=== PATIENT | female | born 1955 | race Caucasian/White ===

== ENCOUNTER → 2017-08-10 | Outpatient (CLI) | payer OTHER ==
[~2017-08-10] MED LIST: ASPIRIN325 PO; CELEXA20 MG PO; IBUPROFEN 800800 M1 PO; LORAZEPAM 1 MG T1 M1 PO; NEURONTIN 300300 M1 PO; NORTRIPTYLINE H25 M3 GT; NORTRIPTYLINE H25 M3 PO; PERCOCET PO; SAVELLA1 EACH; SENOKOT-S TABL1 EACH PO; ULTRAM 50MG TAB50 MG PO; VITAMIN D35000 UNI1 PO; ZOFRAN4 MG PO
== END ==
LOC: NUC 08-05 08:23
DX: N91.2 Amenorrhea, unspecified (principal); Z78.0 Asymptomatic menopausal state

== ENCOUNTER 2017-10-10 05:22 | Day surgery (SDC) | payer OTHER ==
[~2017-10-10] VITALS: Ht 162.6 cm; Wt 81.6 kg
--- NOTE | ~2017-10-10 | O ---
[facility] [place] [address] OPERATIVE REPORT Name: DASIA GARCIA Room #: 150-3 [facility] M..#: [id number] Admission: 10/10/17 Attend Phys: Pavan Dennison MD, Discharge: Date of : 57 Report #: [id number] THIS REPORT FOR: //name// CC: Pavan Rodriguez DATE OF SERVICE: 10/10/2017 PREOPERATIVE DIAGNOSES: 1. Incarcerated incisional ventral hernia. 2. Suspected intra-abdominal adhesions. POSTOPERATIVE DIAGNOSES: 1. Incarcerated incisional ventral hernias x 2. 2. Dense intra-abdominal adhesions. PROCEDURES PERFORMED: 1. Laparoscopic repair of incarcerated incisional ventral hernias with [address] mesh measuring 15 x 10 cm in dimension. 2. Laparoscopic lysis of adhesions. SURGEON: Pavan Dennison MD EQUIPMENT SERVICE LEAD: VALENTINA Brown. ANESTHESIA: General endotracheal anesthesia. ESTIMATED BLOOD LOSS: Minimal (less than 5 mL). COMPLICATIONS: None appreciated. SPECIMENS: None. INDICATIONS: The patient is a 62-year-old female, who has undergone a prior hysterectomy as well as excision of a benign liver tumor via longitudinal midline incision. Since her most recent operation, she has had bulging in the mid abdominal region, with physical exam findings consistent with an incisional ventral hernia containing likely omentum. As she has this hernia defect, indication was for laparoscopic repair today with intraoperative findings of adhesions showing omentum plastered to the abdominal wall as well 2 incisional ventral hernias, incarcerated with omentum that spanned a distance of 4 cm in craniocaudal direction. As such, indication was for the above-mentioned procedures today. DESCRIPTION OF PROCEDURE: After explaining the risks, benefits and alternatives of the procedure with the patient in detail in the preoperative holding area and [address] [address] OPERATIVE REPORT Name: DASIA GARCIA Room #: 150-3 [facility]..#: [id number] Admission: 10/10/17 Attend Phys: Pavan Dennison MD, Discharge: Date of : 57 Report #: [id number] obtaining written consent, the patient was brought to the operating room and placed supine on the operating room table. After conducting a thorough timeout procedure, verifying correct patient and procedure, the patient was given general endotracheal anesthesia. Once adequate anesthesia was obtained, her SCDs were hooked up to pneumatic compression device. She was given a preoperative dose of antibiotics in line with the SCIP protocol. The patient's abdomen was prepped and draped in standard surgical sterile fashion. 5 mL of 0.5% Marcaine with epinephrine were used to anesthetize the skin in the left upper quadrant, midclavicular line, in subcostal location. A #15 bladed scalpel was used to create a small skin mercedez at this location. A 5 mm Visiport was placed over 0 degree 5 mm laparoscope and was introduced through this incision site. Once intra-abdominal placement was verified visually, the obturator for the trocar and laparoscope were both removed and the abdomen was insufflated to 15 mmHg using carbon dioxide gas. The laparoscope was changed to a 5-mm 30-degree laparoscope and was reintroduced through this trocar. The entire abdomen was evaluated to ensure no injury upon entry. I now placed 2 additional trocars in the left flank. A 12 mm port was placed lateral to the umbilicus, the anterior axillary line. An additional 5 mm port was placed in left lower quadrant. Both additional trocars were placed under direct vision after anesthetizing the skin at each location with 5 mL of 0.5% Marcaine with epinephrine. I created appropriately sized skin nicks using #15 bladed scalpel. Laparoscope was removed, changed to a 12 mm port and proceeded to perform laparoscopic lysis of adhesions using combination of EndoShears and Harmonic scalpel. Luckily, this was all omentum plastered to the abdominal wall and as such, I was able to skeletonize posterior aspect of the anterior abdominal wall in this fashion. We stayed well away from bowel at all times. Once we had taken all the adhesions down, which incorporated reduction of 2 incarcerated incisional hernias in the mid abdomen, we were able to survey the entire abdominal wall. There was no evidence of herniation anywhere except for 2 punctate areas that were 1 x 1 cm in dimension that spanned a total of 4 cm in craniocaudal direction in the supraumbilical location. As such, I selected a piece of Ventralight ST mesh on the echo positioning system that measured 10 x 15 cm in dimension. This would give me 5 cm overlap outside of the hernia defects in question. The Taj-Jeffrey suture passer device was driven directly through the anterior abdominal wall in the mid portion right between the 2 hernia defects and was used to grasp the end eyelet of the balloon insufflation tubing which was then grasped, pulled up through the abdominal wall, cut off and passed off the field. I then attached the balloon syringe insufflator to the tubing and proceeded to fully inflate the internal scaffolding of the echo positioning system. This was held up and a hemostat was used to tag it externally at the skin level to hold the entire mesh in close approximation with the posterior aspect of the anterior abdominal wall. The abdomen was desufflated down to a pressure of 8 mmHg, and I now proceeded to circumferentially fix the mesh into place using the SecureStrap absorbable fixation device to place tacks at 1 cm intervals around the periphery as well as placing numerous tacks throughout the innermost portion of the mesh, to hold the [facility] [address] [place] [address] OPERATIVE REPORT Name: DASIA GARCIA Room #: 150-3 [facility].#: [id number] Admission: 10/10/17 Attend Phys: Pavan Dennison MD, Discharge: Date of : 57 Report #: [id number] entire mesh in close approximation with posterior aspect of the anterior abdominal wall throughout. The tubing was elevated externally and suture scissors were used to cut the tubing. This allowed the echo scaffolding to deflate which was grasped and pulled out of the abdomen through the 12 mm port under direct vision using the laparoscope in the left upper quadrant trocar. I then placed a fascial closing suture around the 12 mm fascial incision using 0 PDS suture on the Taj-Jeffrey suture passer device and this was tied down under direct vision to ensure I did not catch a loop of bowel or omentum in the suture repair. Evaluation of the hernia repair showed the mesh to lie smoothly against the abdominal wall with 5 cm overlap outside of both hernia defects in question. Now, we had complete hemostasis. The abdomen was now fully desufflated. All remaining trocars removed under direct vision. A 4-0 Monocryl was used in a standard subcuticular fashion for all skin incisions and Dermabond glue was applied to all skin wounds. At the end of the procedure, all instrument, needle and sponge counts were correct. The patient tolerated the procedure without incident, was awakened in the operating room, transitioned to the recovery room in stable condition with no apparent complications. <ELECTRONICALLY SIGNED> By: Pavan Dennison MD, FACS 10/10/17 1135 [id number] [id number] Pavan Dennison MD, FACS /nt
[~2017-10-10 05:22] MED LIST changes: -IBUPROFEN 800800 M1 PO; -NEURONTIN 300300 M1 PO; -PERCOCET PO; -SENOKOT-S TABL1 EACH PO
[2017-10-10 07:01] LABS: HEMATOCRIT 43.3 % (37.0-47.0); HEMOGLOBIN 14.5 gm/dL (12.0-15.0)
[2017-10-10 07:29] VITALS: BP 119/70
[2017-10-10] MEDS ORDERED: SENOKOT-S TABL1 EACH PO (09:35)
[2017-10-10] MEDS ORDERED: IBUPROFEN 800800 M1 PO (09:35)
[2017-10-10] MEDS ORDERED: NEURONTIN 300300 M1 PO (09:35)
[2017-10-10] MEDS ORDERED: PERCOCET PO (09:35)
[2017-10-10 09:54] VITALS: BP 119/70
== END 2017-10-10 11:00 | disposition home or self-care (01) ==
LOC: TBA 05:22 → OR 05:22
PROVIDERS: Surgery
DX: K43.0 Incisional hernia with obstruction, without gangrene (principal); K66.0 Peritoneal adhesions (postprocedural) (postinfection); F32.9 Major depressive disorder, single episode, unspecified; F41.9 Anxiety disorder, unspecified; M79.7 Fibromyalgia; Z90.710 Acquired absence of both cervix and uterus; Z98.890 Other specified postprocedural states; Z79.899 Other long term (current) drug therapy; Z88.2 Allergy status to sulfonamides; Z79.82 Long term (current) use of aspirin; Z79.891 Long term (current) use of opiate analgesic
CPT/HCPCS: 50010; 50101; 50249; 50386; 50455; 50555; 50558; 50962; 50979; 50984; 52265; 53307; 54022; 54118; 56462; 56525; 56526; 57092; 62110; 62900; 70005

== ENCOUNTER → 2018-10-20 | Outpatient (CLI) | payer OTHER ==
[~2018-10-20] MED LIST changes: +IBUPROFEN 800800 M1 PO; +NEURONTIN 300300 M1 PO; +PERCOCET PO; +SENOKOT-S TABL1 EACH PO
--- NOTE | 2018-10-20 13:28 | NUR ---
Pt arrived for implantable outsole compressor. Time out 12:57 Skin prepped and draped 12:59 Lidocaine 7 ml used for local anesthesia. Implant placed at 1306. Sutures at 1308. Iplant strategic solutions consultant progress not to be scanned in to chart.
--- NOTE | 2018-10-23 12:06 | LINQ ---
[facility] [place] [address] 5k [employer] PROCEDURE REPORT Name: RADHADASIA RAMOS Room #: REG [facility]#: [id number] ������������� Admission: 10/20/18 ������������� Attend Phys: Michael Goldberg Discharge: ��� ������������� ��� Date of : 57 Date of Service: 10/23/18 1206 �� Report #: [id number] �������� ��������������������������������������������[id number] THIS REPORT FOR: //name// APPROVED REPORT Study performed: 10/20/2018 16:23:53 Patient Status: Out-Patient Room #: Event Personnel: MD Tatyana Brown, RTR, FACILITY OPERATIONS MANAGER, Monitor Exam: Loop Recorder Implant Indications: Syncope The patient is a 63 year-old female with a history of syncope and palpitations. Implanted Devices: St. Eddie: Confirm Rx Ref.# [id number] SN: [id number]; Expiration: 2020-03-06 Procedure The patient underwent informed consent. We discussed the details of the procedure including the risks, which include, but not limited to bleeding, infection, vascular damage, cardiac perforation, and pneumothorax. After informed consent was obtained the patient was brought to the cardiac apposition prep and hold. The chest was prepped and draped in usual sterile manner. One percent lidocaine was then utilized and still the proposed incision and pocket area. Using an 11 blade a small incision was made and using blunt dissection a pocket was developed. Using the standard insertion device provided by the company the device was then deployed. Subcuticular tissue was closed with a 1 stitch of a 3-0 suture. Skin was closed with 3-0 running subcuticular absorbable. No complications patient tolerated procedure well Complications The patient tolerated the procedure well and there were no complications associated with the procedure. Findings Specimens Removed: No Estimated Blood Loss: 0 Conclusion 1. Successful implantation of an implantable loop recorder [address] [address] [place] PROCEDURE REPORT Name: DASIA GARCIA [facility] [id number] ������������� Admission: 10/20/18 ������������� Attend Phys: Michael Goldberg Discharge: ��� ������������� ��� Date of : 57 Date of Service: 10/23/181205 �� Report #: [id number] �������� ��������������������������������������������[id number] model Recommendations 1. Proceed per standard post implantation protocol ��������������������������������������������� <ELECTRONICALLY SIGNED> ���������������������������������������� By: Michael Sommer MD ��������������������������������������������� 10/23/18 1206 05 05 Michael Sommer MD /INF
== END | disposition home or self-care (01) ==
LOC: CATH 11:27
DX: Z45.09 Encounter for adjustment and management of other cardiac device (principal); F41.9 Anxiety disorder, unspecified; M79.7 Fibromyalgia; Z79.899 Other long term (current) drug therapy; Z90.710 Acquired absence of both cervix and uterus; Z88.2 Allergy status to sulfonamides; Z79.82 Long term (current) use of aspirin; Z83.3 Family history of diabetes mellitus; Z82.49 Family history of ischemic heart disease and other diseases of the circulatory system; Z98.890 Other specified postprocedural states

== ENCOUNTER → 2020-04-23 | Outpatient (CLI) | payer OTHER | LOC: CAT 09:20 | PROVIDERS: ATTEND Family Medicine | DX: Z13.6 Encounter for screening for cardiovascular disorders (principal); I25.10 Atherosclerotic heart disease of native coronary artery without angina pectoris; E78.00 Pure hypercholesterolemia, unspecified ==